=== PATIENT | female | born 1955 | race Caucasian/White ===

== ENCOUNTER → 2020-05-18 | Outpatient (CLI) | payer OTHER ==
[~2020-05-18] MED LIST: NORCO 5-325 TA1 EAC1 PO; POLYMYXIN B/TMP10 ML OP; PROVERA; ZIAC
--- NOTE | 2020-05-18 17:51 | CARDNUC ---
[place] [address] CARDIAC NUCLEAR IMAGING REPORT Name: ELLA OLSEN Astrid Room: [facility]#: [id number] Admission: 05/18/20 Attend Phys: Mirta Werner, Discharge: Date of : 57 Date of Service: 05/18/20 1750 Report #: [id number] THIS REPORT FOR: cc: ARIELLA JULIO PA-C, MASON PA-C Liston, Michael J. MD [facility] ~ APPROVED REPORT Imaging Protocol: Stress Tc-99m/Rest Tc-99m 1 day Study performed: 05/18/2020 10:14:00 Indication: Abnormal EKG, Chest pain, Dyspnea Patient Location: Out-Patient Stress Tech: Judith Hunter Stress Nurse: Emilia Morejon RN Ht: 5 ft 1 in Wt: 157 lbs BSA: 1.70 m2 BMI: 29.66 Medical History Medical History: HTN Medications: ziac Allergies: No known drug allergies Cardiac Risk Factors: Age, HTN Exercise History: Physically active Resting Data Rest SPECT myocardial perfusion imaging was performed in supine position 30 minutes following the intravenous injection of 10.5 mCi of Tc-99m Sestamibi. Time of rest injection: 083 The images were gated to evaluate regional wall motion and calculate left ventricular ejection fraction. Administration Route: IV Administration Site: Right Arm Exercise Stress At peak stress, the patient was injected intravenously with 33.3mCi of Tc-99m Sestamibi. Time of stress injection: 1000 Administration Route: IV Administration Site: Right Arm Heart Rate at time of stress injection: 141 bpm. Patient continued to exercise for 1 minute([place] [address] CARDIAC NUCLEAR IMAGING REPORT Name: ELLA OLSEN Room: [facility]#: [id number] Admission: 05/18/20 Attend Phys: Mirta Werner, Discharge: Date of : 57 Date of Service: 05/18/20 8790 Report #: [id number] Gated Stress SPECT was performed 30 minutes after stress injection. The images were gated to evaluate regional wall motion and calculate left ventricular ejection fraction. Prone imaging was performed. Stress Test Details Stress Test: Exercise stress testing was performed using a Bobby protocol. HR Max Heart Rate (APMHR): 157 bpm Resting HR: 74 bpm Target HR (85% APMHR): 133 bpm Max HR Achieved: 160 bpm % of APMHR: 101 Recovery HR: 98 bpm BP Resting BP: 145/73 mmHg Max BP: 197/96 mmHg Recovery BP: 141/94 mmHg ECG Resting ECG: Sinus Rhythm Stress ECG: Sinus Tachycardia ST Change: Downsloping ST depression Maximum ST Deviation: 1 mm Arrhythmia: None Recovery ECG: Sinus Rhythm Recovery ST Change: Downsloping ST depression Recovery ST Deviation: 1 mm Recovery Arrhythmia: None Clinical Reason for Termination: Maximal effort, ST changes, Fatigue Exercise duration: 5 min 21 sec Exercise capacity: 7.05 METs Functional Aerobic Impairment 91% The patient exhibited reasonable exercise tolerance on the standard Bobby protocol. Stress ECG Conclusion The baseline twelve-lead EKG shows sinus rhythm with very subtle ST segment depression that is downsloping noted in the inferior leads. EKGs obtained during and post exercise show [address] segment depression diffusely that persists 6 [place] [address] CARDIAC NUCLEAR IMAGING REPORT Name: ELLA OLSEN Room: [facility]#: [id number] Admission: 05/18/20 Attend Phys: Mirta Werner, Discharge: Date of : 57 Date of Service: 05/18/20 1750 Report #: [id number] Study Quality Study: Good Artifact: No artifact Study Data At rest, the left ventricular ejection fraction was 77%.. Post stress, the left ventricular ejection was 66%.. TID = 0.94. Perfusion Perfusion images show no defect to suggest infarct or ischemia. Wall Motion Left ventricular systolic function appears normal on gated studies. There are no wall motion abnormalities. Nuclear Conclusion ECG Findings: equivocal Clinical Findings: negative for ischemia Nuclear Findings: negative for ischemia Exercise Capacity: normal Left Ventricular Function: normal Risk Study: low Perfusion study show no defect to suggest infarct or ischemia. Left ventricular systolic function appears normal on gated studies. This is a low risk study. <Conclusion> The baseline twelve-lead EKG shows sinus rhythm with very subtle ST segment depression that is downsloping noted in the inferior leads. EKGs obtained during and post exercise show [address] segment depression diffusely that persists 6 minutes into recovery. <ELECTRONICALLY SIGNED> By: Valdo Cho MD, FACC 05/18/201749 49 49 Valdo Cho MD, FACC /INF
== END ==
LOC: M.NUC 04-19 16:20
PROVIDERS: ATTEND Internal Medicine
DX: I10 Essential (primary) hypertension (principal); R07.9 Chest pain, unspecified; R06.09 Other forms of dyspnea; R94.31 Abnormal electrocardiogram [ECG] [EKG]

== ENCOUNTER 2020-10-07 12:07 | Emergency (ER) | payer OTHER ==
[~2020-10-07] VITALS: Ht 154.9 cm; Wt 69.4 kg
[2020-10-07] MEDS ORDERED: PROZAC20 M1 PO (12:25)
[2020-10-07] MEDS ORDERED: ANASTROZOLE5 GM (12:25)
[2020-10-07] MEDS ORDERED: PROTONIX40 M2 PO (12:26)
[2020-10-07 13:05] LABS: URINE BILIRUBIN NEGATIVE (Negative); URINE BLOOD TRACE (Negative); URINE CLARITY CLEAR; URINE COLOR YELLOW; URINE GLUCOSE-RANDOM NEGATIVE (Negative); URINE KETONES 1+ (Negative); URINE LEUKOCYTES-REFLEX 1+ (Negative); URINE NITRITE-REFLEX NEGATIVE (Negative); URINE PROTEIN TRACE (Negative); URINE SPECIFIC GRAVITY 1.025 (1.005-1.030)
[2020-10-07 13:20] LABS: BACTERIA-REFLEX 1-9 Few /HPF (None Seen); CASTS None Seen /LPF (None Seen); MUCUS 0-3 Light strn/LPF (None Seen); SQUAMOUS >10 Many /LPF (0-3); URINE RBC None Seen /HPF (0-2); URINE WBC-REFLEX 6-15 Few /HPF (0-5)
[2020-10-07 13:20] LABS: ABSOLUTE LYMPHOCYTES 1.5 thou/uL (0.8-5.3); ABSOLUTE MONOCYTES 0.4 thou/uL (0.0-1.2); ABSOLUTE NEUTROPHILS 3.9 thou/uL (1.6-8.1); BASOPHILS 0.4 %; EOSINOPHILS 0.1 %; HEMATOCRIT 40.9 % (37.0-47.0); MCH 29.7 pg (26.0-34.0); MCHC 34.3 g/dL (28.0-37.0); MCV 86.5 fL (80.0-100.0); MONOCYTES 6.6 %; MPV 8.8 fl. (7.2-11.1); NUCLEATED RBCS 0 /100WBC; PLATELET COUNT* 179 thou/uL (150-400); POLYS 66.9 %; RBC 4.73 mil/uL (4.20-5.00); WBC 5.8 thou/uL (4.0-11.0)
[2020-10-07 13:21] LABS: CRYSTALS None Seen /LPF (None Seen)
[2020-10-07 13:38] LABS: CALCIUM 8.7 mg/dL (8.5-10.1); CREATININE 0.7 mg/dL (0.6-1.3); POTASSIUM 3.1 mmol/L (3.5-5.1)
[2020-10-07 13:43] LABS: TOTAL BILIRUBIN 0.2 mg/dL (<0.1-1.0); TOTAL PROTEIN 7.1 g/dL (6.4-8.2)
[2020-10-07] MEDS ORDERED: BACTRIM DS TAB1 EAC1 PO (14:22)
[2020-10-07] MEDS ORDERED: ONDANSETRON ODT4 MG PO (14:22)
[2020-10-07] MEDS ORDERED: APAP W/CODEINE1 TA2 PO (14:22)
[2020-10-07 14:40] VITALS: BP 147/93
--- NOTE | 2020-10-08 10:09 | EKG ---
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[id number] Requested By: Estella Roman Order Number: [id number] MD: Martin Roberson Measurements Intervals [place] Rate: 90 P: -1 [place]: 143 QRS: 17 QRSD: 90 T: -33 QT: 350 QTc: 429 Interpretive Statements Sinus rhythm Nonspecific repol abnormality, diffuse leads No previous ECG available for comparison Electronically Signed On 10-08-2020 10:09:02 CHEMICAL ENGINEERING TECHNOLOGIST by Martin Roberson [email or web address] <ELECTRONICALLY SIGNED> By: Martin Roberson MD, [facility] 10/08/20 1009 1246 1246 Martin Roberson MD, FACC /EPI
== END 2020-10-07 14:40 | disposition home or self-care (01) ==
LOC: M.ERS 12:07
PROVIDERS: Physician Assistant
DX: U07.1 COVID-19 (principal); N39.0 Urinary tract infection, site not specified; I10 Essential (primary) hypertension; Z79.899 Other long term (current) drug therapy